=== PATIENT | female | born 1990 | race Two or more races ===

== ENCOUNTER 2018-04-16 18:18 | Emergency (ER) | payer OTHER ==
[~2018-04-16] VITALS: Ht 162.6 cm; Wt 108.9 kg
--- NOTE | 2018-04-16 18:20 | NUR ---
C/O N/V, GENERALIZED MALAISE, ABDOMINAL PAIN FOR ABOUT A WEEK. RR EVEN AND UNLABORED. SKIN WARM AND NON-DIAPHORETIC. PROVIDED BLANKET FOR COMFORT. AWAITING MD FOR EVAL.
[2018-04-16] MEDS ORDERED: ONDANSETRON 4 MG TAB.RAPDIS SL ONE (19:00)
[2018-04-16] MEDS ORDERED: ONDANSETRON 4 MG TAB.RAPDIS ONE (19:10)
--- NOTE | 2018-04-16 19:21 | NUR ---
REPORT REC'D FROM TOMI SMITH FOR [facility]. PT REC'D MEDICATION ORDERED AND URINE SAMPLE WAS OBTAINED AND SENT TO LAB. PT IS AMBULATORY WITH A STEADY GAIT.
[2018-04-16 19:36] LABS: APPEARANCE,URINE Clear (CLEAR); BILIRUBIN,URINE Negative (NEGATIVE); BLOOD, URINE Negative Ery/uL (NEGATIVE); COLOR,URINE Yellow (YELLOW); KETONES,URINE Trace (NEGATIVE); LEUKOCYTE ESTERASE ,URINE Small (NEGATIVE); NITRITE, URINE Negative (NEGATIVE); PH,URINE 5.5 (5.0-8.0); PROTEIN,URINE Negative (NEGATIVE); UGLUCOSE Negative (NEGATIVE); UROBILINOGEN,URINE 0.2 EU/dL (0.2)
[2018-04-16 19:43] LABS: BASOPHILS # (AUTO) 0.1 /CMM (0.0-0.2); BASOPHILS % (AUTO) 1.3 % (0.0-2.0); EOSINOPHILS % (AUTO) 1.1 % (0.0-6.0); HEMATOCRIT 42 % (33-45); LYMPHOCYTES # (AUTO) 3.3 /CMM (0.8-4.8); LYMPHOCYTES % (AUTO) 30.9 % (20.0-44.0); MEAN CORPUSCULAR HGB CONC 33 g/dl (31.0-36.0); MEAN CORPUSCULAR VOLUME 89 fL (82-100); MONOCYTES # (AUTO) 0.8 /CMM (0.1-1.30); MONOCYTES % (AUTO) 7.4 % (2.0-12.0); NEUTROPHILS # (AUTO) 6.5 /CMM (1.8-8.9); NEUTROPHILS % (AUTO) 59.3 % (43.0-81.0); PLATELET COUNT (AUTO) 279 /CMM (150-450); RED BLOOD CELL COUNT(AUTO) 4.74 MIL/uL (4.0-5.2); WHITE BLOOD COUNT (AUTO) 10.8 K/uL (4.3-11.0)
[2018-04-16 19:49] LABS: BACTERIA,URINE Few /HPF (None Seen); RBC,URINE 0-2 /HPF (0-2)
[2018-04-16 19:50] LABS: MUCUS,URINE Few /LPF (None Seen)
[2018-04-16 19:52] LABS: SQUAMOUS EPITHELIAL CELL,UR Few /HPF (None Seen)
[2018-04-16 19:53] LABS: CALCIUM, SERUM 8.8 mg/dL (8.5-10.1); CREATININE 0.8 mg/dL (0.6-1.3)
[2018-04-16] MEDS ORDERED: MAG HYDROX/AL HYDROX/SIMETH 30 ML UDC ONE (19:56)
[2018-04-16 19:59] LABS: ALBUMIN 3.4 g/dL (3.4-5.0); BILIRUBIN,DIRECT 0.1 mg/dL (0.0-0.2); BILIRUBIN,TOTAL 0.4 mg/dL (0.2-1.0); TOTAL PROTEIN, SERUM 7.3 g/dL (6.4-8.2)
--- NOTE | 2018-04-16 19:59 | NUR ---
PT REC'D NUPURX ORDERED.
[2018-04-16] MEDS ORDERED: MAG HYDROX/AL HYDROX/SIMETH 30 ML UDC PO ONE (20:00)
[2018-04-16] MEDS ORDERED: ACETAMINOPHEN 325 MG TABLET ONE (20:12)
[2018-04-16] MEDS ORDERED: MECLIZINE HCL 12.5 MG TABLET ONE (20:13)
--- NOTE | 2018-04-16 20:15 | NUR ---
PT VOMITING. HOLDING MEDS. INFORMED
[2018-04-16] MEDS ORDERED: IV NS 0.9% 1,000 ML BAG IV ONE (20:30)
[2018-04-16] MEDS ORDERED: ACETAMINOPHEN 325 MG TABLET PO ONE (20:30)
[2018-04-16] MEDS ORDERED: MECLIZINE HCL 12.5 MG TABLET PO ONE (20:30)
[2018-04-16] MEDS ORDERED: METOCLOPRAMIDE HCL 10 MG/2 ML VIAL IV ONE (20:30)
[2018-04-16] MEDS ORDERED: METOCLOPRAMIDE HCL 10 MG/2 ML VIAL ONE (20:35)
--- NOTE | 2018-04-16 21:03 | NUR ---
[facility] STOPPING IVF, PT TO BE D/C'D HOME.
--- NOTE | 2018-04-16 21:11 | NUR ---
Patient discharged to home in stable condition. Written and verbal after care instructions given. Patient verbalizes understanding of instruction AND RX. PT AMBULATED OUT WITH A STEADY GAIT. NO N/V NOTED. VSS.
[2018-04-16 21:18] VITALS: BP 118/75
== END 2018-04-16 21:19 | disposition home or self-care (01) ==
LOC: ER 18:27
DX: O21.9 Vomiting of pregnancy, unspecified (principal); R10.13 Epigastric pain; Z3A.01 Less than 8 weeks gestation of pregnancy
CPT/HCPCS: 36415; 80048-TC; 80076-TC; 81000-TC; 83690-TC; 84703-TC; 85025-TC; 87086-TC; A4606; J2765; J7030; J8597; Q0162; Z7610